=== PATIENT | female | born 1995 | race Caucasian/White ===

== ENCOUNTER → 2017-04-21 | Outpatient (CLI) | payer BC ==
[~2017-04-21] MED LIST: CIPRO250 M1 PO; FLEXERIL PO; HYDROCODON-ACE1 EAC7 PO; IRON325 PO; MIRALAX17 GM PO; NAPROSYN500 MG PO
== END ==
LOC: M.ULTRA 11:10
DX: N63.21 Unspecified lump in the left breast, upper outer quadrant (principal)

== ENCOUNTER → 2018-03-03 | Outpatient (CLI) | payer BC | LOC: M.ULTRA 12:47 | DX: N63.21 Unspecified lump in the left breast, upper outer quadrant (principal); D24.2 Benign neoplasm of left breast ==